=== PATIENT | female | born 1980 | race Caucasian/White ===

== ENCOUNTER 2020-12-11 21:42 | Emergency (ER) | payer OTHER ==
[2020-12-12] MEDS ORDERED: NAPROXEN500 MG PO (00:21)
== END 2020-12-12 00:35 | disposition home or self-care (01) ==
LOC: ER1 21:42
DX: S92.521A Displaced fracture of middle phalanx of right lesser toe(s), initial encounter for closed fracture (principal); E11.9 Type 2 diabetes mellitus without complications; F17.210 Nicotine dependence, cigarettes, uncomplicated; W22.8XXA Striking against or struck by other objects, initial encounter
CPT/HCPCS: 28515; 73630; 99283

== ENCOUNTER → 2021-12-27 | Outpatient (CLI) | payer BC ==
[~2021-12-27] MED LIST: NAPROXEN500 MG PO
[2021-12-27 18:37] LABS: HEMOGLOBIN 14.8 gm/dl (12.3-15.3); RED BLOOD COUNT 4.89 M/UL (4.00-5.10); WHITE BLOOD COUNT 8.4 K/UL (4.5-11.0)
[2021-12-27 18:57] LABS: BUN/CREATININE RATIO 13 (0-10)
== END ==
LOC: LAB 17:30
PROVIDERS: Nurse Practitioner
DX: R10.9 Unspecified abdominal pain (principal)
CPT/HCPCS: 74018; 80053; 80061; 82150; 83690; 84439; 84443; 85025

== ENCOUNTER 2021-12-28 10:07 | Emergency (ER) | payer BC ==
[2021-12-28 11:11] LABS: HEMOGLOBIN 14.9 gm/dl (12.3-15.3); RED BLOOD COUNT 4.85 M/UL (4.00-5.10); WHITE BLOOD COUNT 7.8 K/UL (4.5-11.0)
[2021-12-28 11:26] LABS: BUN/CREATININE RATIO 15 (0-10)
== END 2021-12-28 14:01 | disposition home or self-care (01) ==
LOC: ER1 10:07
PROVIDERS: Physician Assistant
DX: R10.9 Unspecified abdominal pain (principal); E11.9 Type 2 diabetes mellitus without complications; F17.200 Nicotine dependence, unspecified, uncomplicated; R10.811 Right upper quadrant abdominal tenderness
CPT/HCPCS: 80053; 81001; 83690; 84703; 85025; 96374; 96375; 99284; C9113; J1885; J2270; J2405; Q9967

== ENCOUNTER → 2022-01-18 | Outpatient (CLI) | payer BC | LOC: NM 08:23 | DX: R10.11 Right upper quadrant pain (principal) | CPT/HCPCS: 78227; A9537; J2805 ==